=== PATIENT | male | born 1985 | race Caucasian/White ===

== ENCOUNTER 2023-09-25 08:21 | Observation (INO) ==
[2023-09-25] MEDS: Morphine 4 MG/ML VIAL (1 ml) IV ONE ×2 (09:13→09:36)
[2023-09-25] MEDS: Ondansetron 4 mg VIAL 2 MG/ML 2 ml VIAL IV ONE (09:13)
[2023-09-25] MEDS: Lactated Ringers 1000 ml BAG 1,000 ML IV ONE (09:13)
[2023-09-25 09:29] LABS: ABS Eosinophils 0.1 10^3/uL (0.0-0.5); ABS Lymphocytes 1.1 10^3/uL (1.0-4.8); ABS Neutrophils 11.9 10^3/uL (1.5-7.6); ABS Nucleated RBC 0.01 10^3/ul; Eosinophil % 0.8 %; Hematocrit 46.1 % (38-53); Hemoglobin 16.3 g/dL (13.2-16.3); Lymphocyte % 7.8 %; Mean Corpuscular Hemoglobin 33.5 pg (27-33); Mean Corpuscular Hgb Conc 35.4 g/dL (31-36); Mean Corpuscular Volume 94.6 fL (80-97); Mean Platelet Volume 8.2 fL (7.5-11.2); Platelet Count 279 10^3/uL (150-450); Red Blood Count 4.87 10^6/uL (4.06-5.63); Red Cell Distribution Width 12.7 % (12-17); White Blood Count 14.1 10^3/uL (3.6-10.2)
[2023-09-25 09:53] LABS: Albumin 5.1 g/dL (3.2-5.2); Albumin/Globulin Ratio 1.7 (1-3); Calcium 10.6 mg/dL (8.6-10.3); Creatinine, Serum 1.16 mg/dL (0.67-1.17); Potassium 4.3 mmol/L (3.5-5.0); Total Bilirubin 1.9 mg/dL (0.2-1.0); Total Protein 8.1 g/dL (6.4-8.9); eGFR CKD-EPI 82.2 (>60)
[2023-09-25 10:45] LABS: Urine Appearance Clear; Urine Bilirubin Negative (Negative); Urine Blood Negative (Negative); Urine Color Light-Yellow; Urine Glucose Negative (Negative); Urine Ketones Negative (Negative); Urine Nitrite Negative (Negative); Urine Protein Negative (Negative); Urine Specific Gravity 1.006 (1.002-1.030); Urine Urobilinogen Negative (Negative)
[2023-09-25] MEDS: Iohexol 350 (CONTRAST) 500 ML MDV IV ONE (12:10)
[2023-09-25] MEDS: Piperacillin/Tazobac 3.375 BAG 3.375 GM/100 ML BAG IV ONE (12:43)
[2023-09-25] MEDS ORDERED: Ondansetron 4 mg VIAL 2 MG/ML 2 ml VIAL IV PRN ×2 (12:58→14:11)
[2023-09-25] MEDS ORDERED: HYDROmorphone 0.5 MG/0.5 ML SYRINGE IV SLOW PU PRN (12:59)
[2023-09-25] MEDS: HYDROmorphone 1 MG/1 ML SYRINGE IV ONE (13:02)
[2023-09-25] MEDS ORDERED: Midazolam 2 mg/2 ml VIAL 1 mg/ml 2 ml VIAL (2 mg) ONE ×2 (13:26→15:04)
[2023-09-25] MEDS ORDERED: Lidocaine 2% PF 5 ML VIAL ONE (13:26)
[2023-09-25] MEDS ORDERED: fentaNYL 250 mcg/5 ml 50 MCG/ML 5 ml VIAL (250 MCG) ONE (13:26)
[2023-09-25] MEDS ORDERED: Propofol 10 MG/ML 20 ML BTL ONE ×2 (13:26→15:29)
[2023-09-25] MEDS ORDERED: fentaNYL 100 mcg/2 ml 50 MCG/ML VIAL IV PRN (14:11)
[2023-09-25] MEDS ORDERED: Naloxone 0.4 mg VIAL 0.4 mg/ml 1 ml VIAL IV PRN (14:11)
[2023-09-25] MEDS ORDERED: Bupivacaine 0.5% SDV PF 30ML VIAL ONE (14:19)
[2023-09-25] MEDS ORDERED: Lidocaine 1.5% EPI 1:200,000 30 ML SDV ONE (14:20)
[2023-09-25] MEDS ORDERED: Acetaminophen IV 1 GM/100ML 1,000 MG/100 ML BAG IV ONE (15:24)
[2023-09-25] MEDS ORDERED: Ondansetron 4 mg VIAL 2 MG/ML 2 ml VIAL ONE (15:32)
[2023-09-25] MEDS ORDERED: Dexamethasone IV 4 MG/ML VIAL 1 ml VIAL ONE (15:32)
[2023-09-25] MEDS ORDERED: Rocuronium 50 mg VIAL 10 mg/ml 5 ml VIAL (50 mg) ONE (15:47)
[2023-09-25] MEDS: HYDROmorphone 0.5 MG/0.5 ML SYRINGE IV SLOW PU PRN (18:15)
[2023-09-25] MEDS: Lactated Ringers 1000 ml BAG 1,000 ML IV SCH (18:21)
[2023-09-25] MEDS ORDERED: Al Hydrox/Mg Hydrox/Simet LIQ 30 ML UDC PO PRN (22:07)
[2023-09-25] MEDS: Nicotine PATCH 21 MG/24 HR PATCH TRANSDERM PRN (22:10)
[2023-09-25] MEDS: NS 0.9% 1000 ml BAG 1,000 ML IV SCH (22:39)
[2023-09-25] MEDS: Piperacillin/Tazobac 3.375 BAG 3.375 GM/100 ML BAG IV SCH (22:41)
[2023-09-25] MEDS: HYDROmorphone 1 MG/1 ML SYRINGE IV SLOW PU PRN (22:42)
[2023-09-26 12:16] VITALS: BP 120/77
== END 2023-09-26 14:31 | disposition home or self-care (01) ==
LOC: ED 08:21 → SSU 13:21 → OR 13:21
PROVIDERS: ADMIT Surgery; ATTEND Surgery